=== PATIENT | male | born 1965 | race Caucasian/White ===

== ENCOUNTER 2018-04-29 07:23 | Emergency (ER) | payer BC, SELFPAY ==
[2018-04-29 07:23] VITALS: BP 170/81; PULSE 65; RESP 18; TEMP 36.7; O2SAT 97; BMI 30.9
[2018-04-29] MEDS: HYDROcodone Bitartrate/Apap 5/325 Tablet PO (07:35)
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
[2018-04-29 08:23] VITALS: RESP 14
[2018-04-29 08:27] VITALS: BP 145/80; PULSE 60; RESP 14; O2SAT 96
== END 2018-04-29 08:28 | disposition home or self-care (01) ==
LOC: ED 08:22
PROVIDERS: Emergency Provider Emergency Medicine; Family Provider Family Medicine; PCP Family Medicine
DX: S32.029A Unspecified fracture of second lumbar vertebra, initial encounter for closed fracture (principal); E66.9 Obesity, unspecified; V43.52XA Car driver injured in collision with other type car in traffic accident, initial encounter; Y93.I9 Activity, other involving external motion; Y92.410 Unspecified street and highway as the place of occurrence of the external cause; Y99.8 Other external cause status
CPT/HCPCS: 72100; 99284

== ENCOUNTER → 2020-01-29 | Outpatient (CLI) | payer BC, SELFPAY ==
--- NOTE | 2020-01-29 12:40 | RAD_ITS ---
STUDY: X-RAY CHEST REASON FOR EXAM: Male, 54 years old. Fever and cough, possible aspiration TECHNIQUE: PA and lateral views of the chest. COMPARISON: None. FINDINGS: The lungs are expanded with superimposed left mid and lower lobe infiltrates. No demonstrated effusion. There is no demonstrated pleural abnormality. Normal size heart. Normal mediastinum and javier. Normal visualized pulmonary arteries. Normal visualized aortic arch and descending thoracic aorta. Normal visualized thoracic spine. Normal visualized ribs, clavicles, and shoulders. There is no demonstrated abnormality of the visualized soft tissue structures of the upper abdomen. RAD/Chest PA and Lateral IMPRESSION: Left mid and lower lobe infiltrates without effusion. Follow-up recommended to ensure resolution Electronically Signed: Jatinder Lua MD at 17:04 EDT , Service support ,
== END | disposition home or self-care (01) ==
PROVIDERS: PCP Family Medicine; Referring Provider Anesthesiology Pain Medicine; Visit Provider Anesthesiology Pain Medicine
DX: R50.9 Fever, unspecified (principal); R05 Cough
CPT/HCPCS: 71046

== ENCOUNTER → 2020-02-04 | Outpatient (CLI) | payer BC, SELFPAY ==
--- NOTE | 2020-02-04 11:01 | RAD_ITS ---
STUDY: X-RAY CHEST REASON FOR EXAM: Male, 54 years old. FOLLOW UP FOLLOWING ASPIRATION PNEUMONIA TECHNIQUE: PA and lateral COMPARISON: January 29, 2020 FINDINGS: There is prominence of the interstitial markings in the left upper and lower lobes and to lesser extent the right base.. There is no demonstrated pleural abnormality. Normal size heart. Normal mediastinum and javier. Normal visualized pulmonary arteries. Normal visualized aortic arch and descending thoracic aorta. Normal visualized thoracic spine. Normal visualized ribs, clavicles, and shoulders. There is no demonstrated abnormality of the visualized soft tissue structures of the upper abdomen. There is interval improvement in the left upper and lower lobe infiltrates since prior exam RAD/Chest PA and Lateral IMPRESSION: Persistent nonspecific interstitial thickening. Interval improvement in left upper and lower lobe infiltrates. Electronically Signed: Hari Mccormack MD at 21:39 EDT , Service support ,
== END | disposition home or self-care (01) ==
LOC: MTRAD 10:59
PROVIDERS: PCP Family Medicine; Referring Provider Family Medicine; Visit Provider Family Medicine
DX: J18.9 Pneumonia, unspecified organism (principal)
CPT/HCPCS: 71046

== ENCOUNTER → 2020-03-16 | Outpatient (CLI) | payer BC, SELFPAY ==
[2020-03-17 07:39] LABS: SARS-COV-2 TOTAL ABS Nonreactive (Nonreactive)
== END | disposition home or self-care (01) ==
LOC: LAB 12:08
PROVIDERS: PCP Family Medicine; Referring Provider Internal Medicine Pulmonary Disease; Visit Provider Internal Medicine Pulmonary Disease
DX: R05 Cough (principal)
CPT/HCPCS: 86769; G2023

== ENCOUNTER → 2022-10-17 | Outpatient (CLI) | payer BC, SELFPAY ==
[2022-10-17 12:50] LABS: Microalbumin,Random Urine 19.4 mg/L (NO RANGE EST.); Microalbumin:Creatinine Ratio 10.9 mg/g CRE (<30 mg/g CRE)
[2022-10-17 12:51] LABS: Anion Gap 6 (5-15); BUN 13 mg/dL (7-18); BUN/Creat Ratio 13.2 RATIO (10-20); Chloride 104 mmol/L (98-107); Cholesterol 194 mg/dL (200); Creatinine, Serum 0.99 mg/dL (0.70-1.30); EST Glomerular Filtration Rate 82 mL/min (>60); Est Glom Filt Rate - Afr Amer 100 mL/min (>60); Glucose 74 mg/dL (74-106); High Density Lipoprotein 45 mg/dL; Sodium Level 141 mmol/L (136-145); Triglycerides 220 mg/dL; Very Low Density Lipoprotein 44 mg/dL (5-40)
== END | disposition home or self-care (01) ==
LOC: MFPLAB 10:17
PROVIDERS: PCP Family Medicine; Referring Provider Family Medicine; Visit Provider Family Medicine
DX: I10 Essential (primary) hypertension (principal)
CPT/HCPCS: 36415; 80048; 80061; 82043; 82570